=== PATIENT | male | born 1975 | race Caucasian/White ===

== ENCOUNTER 2020-07-18 16:21 | Inpatient (IN) | payer SELFPAY ==
[~2020-07-18] VITALS: Ht 162.6 cm; Wt 85.3 kg
[2020-07-18] MEDS ORDERED: SODIUM CHLORIDE 0.9% 1,000 ML IV ONE (16:30)
[2020-07-18] MEDS ORDERED: MORPHINE SULFATE 4 MG/ML CPJ (NOT FOR IM USE) IV ONE (16:45)
[2020-07-18] MEDS ORDERED: METHOCARBAMOL 500MG TABLET PO ONE (16:45)
[2020-07-18 17:26] LABS: BASOPHILS % 0.5 % (0.0-2.0); HEMATOCRIT. 38.2 % (42.0-52.0); HEMOGLOBIN. 13.2 g/dL (14.0-18.0); MEAN CORPUSCULAR HEMOGLOBIN 29.9 pg (28.0-32.0); MEAN CORPUSCULAR VOLUME 86.7 fL (80.0-94.0); MEAN PLATELET VOLUME 9.1 fl (7.4-10.4); MONOCYTES % 4.4 % (2.0-8.0); NEUTROPHILS % 82.1 % (40.0-76.0); PLATELET 187 x1000/uL (130-400); RED CELL DISTRIBUTION WIDTH 13.6 % (11.6-14.6)
[2020-07-18 17:33] LABS: CHLORIDE 107 mEq/L (98-107)
[2020-07-18 17:35] LABS: PARTIAL THROMBOPLASTIN TIME 27.5 sec (23.4-31.0); PROTHROMBIN TIME 10.9 sec (9.6-11.0)
[2020-07-18 17:38] LABS: ETHANOL BLOOD < 10 mg/dL
[2020-07-18 17:42] LABS: CREATINE KINASE 70 IU/L (39-308)
[2020-07-18 19:07] LABS: CLARITY URINE CLEAR (CLEAR); COLOR URINE YELLOW (YELLOW); KETONES URINE NEGATIVE (NEGATIVE); LEUKOCYTE ESTERASE URINE NEGATIVE (NEGATIVE); NITRITE URINE NEGATIVE (NEGATIVE); OCCULT BLOOD URINE NEGATIVE (NEGATIVE); PH URINE 5.5 (4.5-8.0); PROTEIN URINE NEGATIVE (NEGATIVE); SPECIFIC GRAVITY URINE 1.012 (1.005-1.030); UROBILINOGEN URINE 0.2 E.U./dL (0.2-1.0)
[2020-07-18] MEDS ORDERED: KETOROLAC 30MG/ML VIAL IV ONE (19:15)
[2020-07-18 19:28] LABS: *BARBITURATES SCREEN URINE NEGATIVE (NEGATIVE); *BENZODIAZEPINES SCREEN URINE NEGATIVE (NEGATIVE); *COCAINE SCREEN URINE NEGATIVE (NEGATIVE); METHADONE URINE SCREEN NEGATIVE (NEGATIVE); OPIATES URINE SCREEN NEGATIVE (NEGATIVE)
[2020-07-18 19:29] LABS: CANNABINOID URINE SCREEN NEGATIVE (NEGATIVE); PHENCYCLIDINE URINE SCREEN NEGATIVE (NEGATIVE)
[2020-07-18] MEDS ORDERED: NA PHOS,M-B/NA PHOS,DI-BA ENEMA 118ML PR PRN (19:45)
[2020-07-18] MEDS ORDERED: ACETAMINOPHEN 650MG SUPP PR PRN ×2 (19:45)
[2020-07-18] MEDS ORDERED: MAGNESIUM/ALUMINUM HYDROXIDE/SIMETHICONE 30ML UDC PO PRN (19:45)
[2020-07-18] MEDS ORDERED: DIPHENHYDRAMINE 50MG/ML VIAL IV PRN (19:45)
[2020-07-18] MEDS ORDERED: ACETAMINOPHEN 325MG TABLET PO PRN (19:45)
[2020-07-18] MEDS ORDERED: ACETAMINOPHEN 650MG/20.3ML UDC GT PRN ×2 (19:45)
[2020-07-18 19:47] LABS: *AMPHETAMINES SCREEN URINE NEGATIVE (NEGATIVE)
[2020-07-18] MEDS: SODIUM CHLORIDE 0.45% 1,000 ML IV SCH (20:32)
[2020-07-18] MEDS: ENOXAPARIN 40MG/0.4ML SYR SUBCUT SCH (21:10)
[2020-07-18 22:30] VITALS: BP 143/86
[2020-07-19] VITALS: BP 138/86
[2020-07-19 04:00] VITALS: BP 128/79
[2020-07-19 07:07] LABS: BASOPHILS % 0.3 % (0.0-2.0); EOSINOPHILS % 1.6 % (0.0-5.0); HEMATOCRIT. 33.7 % (42.0-52.0); HEMOGLOBIN. 11.6 g/dL (14.0-18.0); LYMPHOCYTES % 20.9 % (20.0-50.0); MEAN CORPUSCULAR HEMOGLOBIN 29.7 pg (28.0-32.0); MEAN CORPUSCULAR VOLUME 86.3 fL (80.0-94.0); MEAN PLATELET VOLUME 9.4 fl (7.4-10.4); MONOCYTES % 6.2 % (2.0-8.0); PLATELET 167 x1000/uL (130-400); RED BLOOD CELL COUNT 3.91 mill/uL (4.7-6.1); RED CELL DISTRIBUTION WIDTH 13.3 % (11.6-14.6)
[2020-07-19 07:51] LABS: CHLORIDE 110 mEq/L (98-107)
[2020-07-19 08:00] VITALS: BP 146/80
[2020-07-19 08:01] LABS: LDL CHOLESTEROL 40 mg/dL (5-100)
[2020-07-19 08:02] LABS: HDL CHOLESTEROL 45 mg/dL (40-59)
[2020-07-19] MEDS: ASPIRIN 81MG EC TABLET PO SCH (08:53)
[2020-07-19 12:00] VITALS: BP 147/86
[2020-07-19] MEDS: SODIUM CHLORIDE 0.45% 1,000 ML IV SCH (12:58)
[2020-07-19] MEDS: CYCLOBENZAPRINE 10MG TABLET PO SCH ×2 (14:00→20:56)
[2020-07-19 16:00] VITALS: BP 133/78
[2020-07-19] MEDS ORDERED: HYDR-4134 PO (19:27)
[2020-07-19] MEDS ORDERED: ATOR-2 PO (19:46)
[2020-07-19] MEDS ORDERED: BACL-141 PO (19:47)
[2020-07-19] MEDS ORDERED: CYCL10TA7 PO (19:48)
[2020-07-19 20:00] VITALS: BP 154/83
[2020-07-19] MEDS: ENOXAPARIN 40MG/0.4ML SYR SUBCUT SCH (20:56)
[2020-07-19] MEDS: GABAPENTIN 300MG CAPSULE PO SCH (20:56)
[2020-07-20] VITALS: BP 136/68
[2020-07-20 04:00] VITALS: BP 133/68
[2020-07-20] MEDS: SODIUM CHLORIDE 0.45% 1,000 ML IV SCH (05:05)
[2020-07-20] MEDS: CYCLOBENZAPRINE 10MG TABLET PO SCH (05:06)
[2020-07-20] MEDS: GABAPENTIN 300MG CAPSULE PO SCH (05:06)
[2020-07-20 08:00] VITALS: BP 135/76
[2020-07-20] MEDS ORDERED: ASPI-986 MT (08:10)
[2020-07-20] MEDS: ASPIRIN 81MG EC TABLET PO SCH (08:47)
[2020-07-20] MEDS ORDERED: POTASSIUM CHLORIDE 20MEQ TABLET SR PO SCH (09:00)
[2020-07-20 11:36] VITALS: BP 135/76
== END 2020-07-20 11:55 | disposition home or self-care (01) | DRG 48 ==
LOC: ER 16:21 → 8WST 19:38 → ENRESERV 21:23
PROVIDERS: ADMIT Family Medicine; ATTEND Family Medicine
DX: E11.40 Type 2 diabetes mellitus with diabetic neuropathy, unspecified (principal); E78.5 Hyperlipidemia, unspecified; G89.0 Central pain syndrome; I10 Essential (primary) hypertension; Z86.73 Personal history of transient ischemic attack (TIA), and cerebral infarction without residual deficits; Z56.0 Unemployment, unspecified
CPT/HCPCS: 36415; 70551; 71045; 72141; 80053; 80061; 80305; 80320; 81003; 82550; 82962; 83036; 84484; 85025; 85651; 86140; 92610; 93005; 97166; 99285; J1650; J1885; J2270; J7030; G0480